=== PATIENT | male | born 1990 | race Caucasian/White ===

== ENCOUNTER 2019-08-13 10:41 | Emergency (ER) | payer OTHER ==
--- NOTE | 2019-08-13 11:09 | EDM.PDOC ---
ED HPI GENERAL MEDICAL PROBLEM - General Chief Complaint: Gastrointestinal Problem Stated Complaint: ABDOMINAL PAIN Time Seen by Provider: 08/13/19 11:04 Source of Information: Reports: Patient, RN Notes Reviewed History Limitations: Reports: No Limitations - History of Present Illness INITIAL COMMENTS - FREE TEXT/NARRATIVE: Patient is a 29-year-old male who presents to the ED for the evaluation of his mid abdominal pain. Patient notes that he is had this pain on and off for years , but he notes that the pain worsened this morning, he is experiencing some nausea/vomiting and diarrhea with this. Patient states that his whole mid belly feels as if there is some mild bloating, and a bandlike pressure around his belly. He states that sitting or laying down hurts, and then walking around seems to make it feel better. He notes that his stomach feels like it is on fire, and he did have couple episodes of diarrhea this morning as well as some vomiting after the pain developed. Patient notes he has been trying a probiotic the last 2 weeks, and it was helping until today. Patient denies any recent illness, fever/chills, cough/shortness of breath, has been told he has anxiety in the past, but does not take any medications but does however smoke some marijuana to try to relieve his anxiety. The patient notes some musculoskeletal surgery is otherwise he has no abdominal surgery so still retains his appendix and gallbladder. Patient states he is not a daily drinker , and drinks very rarely socially, he said he had 2 white claws last morning. Patient does not have a primary care provider, and is never seen a doctor for this abdomen pain. 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 Middle Abdomen Pain Score (Numeric/FACES): 10 - Related Data Allergies Allergy/AdvReac Type Severity Reaction Status Date / Time No Known Allergies Allergy Verified 08/13/19 11:04 Home Meds: Home Meds LORazepam [Ativan] 1 mg PO TID PRN #20 tab 08/13/19 [Rx] Metoclopramide HCl [Reglan] 10 mg PO QID PRN #20 tablet 08/13/19 [Rx] Past Medical History - Past Health History Medical/Surgical History: Denies Medical/Surgical History - Past Surgical History Musculoskeletal Surgical History: Reports: Shoulder Surgery (labrum surgery), Other (See Below) (pec reconstruction surgery) Social & Family History - Tobacco Use Smoking Status *Q: Never Smoker - Caffeine Use Caffeine Use: Reports: None - Alcohol Use Alcohol Use History: Yes Date/Time of Last Drink Comment: drinks very rarely, had 2 white claws last night Alcohol Use Frequency: Rarely - Recreational Drug Use Recreational Drug Use: Yes Drug Use in Last 12 Months: Yes Recreational Drug Type: Reports: Marijuana/Hashish Recreational Drug Use Frequency: Daily ED ROS GENERAL - Review of Systems Review Of Systems: See Below Constitutional: Denies: Fever, Chills, Malaise Respiratory: Denies: Shortness of Breath, Cough Cardiovascular: Denies: Chest Pain GI/Abdominal: Reports: Abdominal Pain (mid-upper abd pain), Diarrhea, Nausea, Vomiting. Denies: Constipation, Decreased Appetite : Denies: Dysuria, Flank Pain, Frequency, Urgency Psychiatric: Reports: Anxiety (pt is pacing room and is obviously anxious, somewhat diaphoretic) ED EXAM, GI/ABD - Physical Exam Exam: See Below Exam Limited By: No Limitations General Appearance: Alert, WD/WN, No Apparent Distress, Anxious (pacing room but does lay down for exam, seems calmer when he is being talked to/distracted) Eyes: Bilateral: Normal Appearance Ears: Normal External Exam Nose: Normal Inspection Throat/Mouth: Normal Inspection, Normal Lips, Normal Teeth, Normal Gums, Normal Oropharynx, Normal Voice, No Airway Compromise Head: Atraumatic, Normocephalic Neck: Normal Inspection Respiratory/Chest: No Respiratory Distress, Lungs Clear, Normal Breath Sounds, No Accessory Muscle Use, Chest Non-Tender Cardiovascular: Normal Peripheral Pulses, Regular Rate, Rhythm, No Murmur GI/Abdominal Exam: Normal Bowel Sounds, Soft, No Distention, No Mass, Tender ( LUQ and mid abdomen seems to be focal source of pain) Neurological: Alert, Oriented, Normal Cognition, No Motor/Sensory Deficits Psychiatric: Normal Affect, Normal Mood Skin Exam: Warm, Intact, Normal Color, No Rash, Diaphoretic (slightly) Course - Vital Signs Last Recorded V/S: Last Vital Signs Temp Pulse 99 08/13/19 10:58 Resp 18 08/13/19 10:58 BP Pulse Ox 99 08/13/19 10:58 - Orders/Labs/Meds Labs: Laboratory Tests 08/13/19 08/13/19 08/13/19 Range/Units 11:25 11:25 13:05 WBC 13.98 H (4.23-9.07) K/mm3 RBC 5.11 (4.63-6.08) M/mm3 Hgb 15.2 (13.7-17.5) gm/dl Hct 44.5 (40.1-51.0) % MCV 87.1 (79.0-92.2) fl MCH 29.7 (25.7-32.2) pg MCHC 34.2 (32.2-35.5) g/dl RDW Std Deviation 40.4 (35.1-43.9) fL Plt Count 335 (163-337) K/mm3 MPV 9.2 L (9.4-12.3) fl Neutrophils % (Manual) 75 H (40-60) % Band Neutrophils % 0 (0-10) % Lymphocytes % (Manual) 18 L (20-40) % Atypical Lymphs % 0 % Monocytes % (Manual) 7 (2-10) % Eosinophils % (Manual) 0 L (0.8-7.0) % Basophils % (Manual) 0 L (0.2-1.2) Platelet Estimate Adequate RBC Morph Comment Normal Sodium 140 (136-145) mEq/L Potassium 3.7 (3.5-5.1) mEq/L Chloride 104 (98-107) mEq/L Carbon Dioxide 25 (21-32) mEq/L Anion Gap 14.7 (5-15) BUN 13 (7-18) mg/dL Creatinine 1.1 (0.7-1.3) mg/dL Est Cr Clr Drug Dosing 123.84 mL/min Estimated GFR (MDRD) > 60 (>60) mL/min BUN/Creatinine Ratio 11.8 L (14-18) Glucose 102 (74-106) mg/dL Calcium 9.3 (8.5-10.1) mg/dL Total Bilirubin 0.9 (0.2-1.0) mg/dL GGT 13 L (15-85) U/L AST 22 (15-37) U/L ALT 24 (16-63) U/L Alkaline Phosphatase 71 (46-116) U/L Total Protein 7.6 (6.4-8.2) g/dl Albumin 4.1 (3.4-5.0) g/dl Globulin 3.5 gm/dL Albumin/Globulin Ratio 1.2 (1-2) Lipase 124 (73-393) U/L Urine Color Yellow (Yellow) Urine Appearance Clear (Clear) Urine pH 7.0 (5.0-8.0) Ur Specific [place] > or = 1.030 (1.005-1.030) Urine Protein Trace H (Negative) Urine Glucose (UA) Negative (Negative) Urine Ketones 1+ H (Negative) Urine Occult Blood Negative (Negative) Urine Nitrite Negative (Negative) Urine Bilirubin Negative (Negative) Urine Urobilinogen 0.2 (0.2-1.0) Ur Leukocyte Esterase Negative (Negative) Urine RBC 0-5 (0-5) /hpf Urine WBC 0-5 (0-5) /hpf Ur Epithelial Cells 0-5 (0-5) /hpf Urine Bacteria Moderate H (FEW) /hpf Urine Mucus Many H (FEW) /hpf Meds: Medications Discontinued Medications Generic Name Dose Route Start Last Admin Trade Name Freq PRN Reason Stop Dose Admin Diatrizoate Meglum/Diatrizoate Sod 90 ml 08/13/19 13:34 Gastrografin 37% PO 08/13/19 13:35 ONETIME ONE Hydromorphone HCl 1 mg 08/13/19 11:28 08/13/19 11:36 Dilaudid IVPUSH 08/13/19 11:29 1 mg ONETIME STA Administration Sodium Chloride 1,000 mls @ 999 mls/hr 08/13/19 11:30 08/13/19 11:36 Normal Saline IV 999 mls/hr ASDIRECTED SHONA Administration Iopamidol 100 ml 08/13/19 13:33 08/13/19 13:42 Isovue-300 (61%) IVPUSH 08/13/19 13:34 100 ml ONETIME ONE Administration Lorazepam 1 mg 08/13/19 12:06 08/13/19 12:21 Ativan IVPUSH 08/13/19 12:07 1 mg ONETIME ONE Administration Metoclopramide HCl 10 mg 08/13/19 12:14 08/13/19 12:21 Reglan IVPUSH 08/13/19 12:15 10 mg ONETIME ONE Administration Ondansetron HCl 4 mg 08/13/19 11:28 08/13/19 11:36 Zofran IVPUSH 08/13/19 11:29 4 mg ONETIME ONE Administration - Re-Assessments/Exams Free Text/Narrative Re-Assessment/Exam: 08/13/19 11:37 Patient presents to the ED for the evaluation of his abdominal pain. I do believe a portion of this is anxiety related, but will get some labs and abdomen / pelvis CT for further examination. 08/13/19 14:[address] have resulted, CBC demonstrates a mildly elevated white count, but 75% neutrophils and no bands, which could be stress reaction. CT demonstrates no acute abnormalities. I do highly believe that a lot of his symptoms are anxiety or stress related, as the nurse reports that the Ativan seemed to help the greatest with his anxiety. I will offer the patient a prescription for this, and have him follow-up with a regular provider for further evaluation if warranted. But again I do believe most of his symptoms are due to stress and anxiety in nature. Departure - Departure Time of Disposition: 14:46 Disposition: Home, Self-Care 01 Condition: Good Clinical Impression: Anxiety Abdominal pain Qualifiers: Abdominal location: generalized Qualified Code(s): R10.84 - Generalized abdominal pain Nausea & vomiting Qualifiers: Vomiting type: unspecified Vomiting Intractability: non-intractable Qualified Code(s): R11.2 - Nausea with vomiting, unspecified - Discharge Information *PRESCRIPTION DRUG MONITORING PROGRAM REVIEWED*: Yes *COPY OF PRESCRIPTION DRUG MONITORING REPORT IN PATIENT ROMAN: No Prescriptions: LORazepam [Ativan] 1 mg PO TID PRN #20 tab PRN Reason: Anxiety Metoclopramide HCl [Reglan] 10 mg PO QID PRN #20 tablet PRN Reason: Nausea Instructions: Abdominal Pain, Adult, [id number], Living With Anxiety Referrals: PCP,None [Primary Care Provider] - Forms: ED Department Discharge Additional Instructions: You were evaluated in the ED for your generalized abdomen pain with nausea/ vomiting. You did have some labs done today, and everything is essentially within normal limits. Your white blood cell count is a little bit elevated, but this is likely due to stress and not a bacterial infection, your urinalysis looked okay as well. Abdomen pelvis CT demonstrated no sign of any acute abnormalities that would require more urgent management at today's visit. You were given some IV fluids, IV pain medication, IV antianxiety medication, and IV antinausea medication. The nausea medications and the anti-anxiety medications seem to give you the best benefit. It is highly likely that most your symptoms can be due to anxiety, anxiety can cause a lot of GI distress in some patients. Please take the Ativan, 1 tablet 3 times a day as needed for anxiety type symptoms. You have also been given a prescription for an antinausea medication , please take 1 tablet 4 times a day as needed for further nausea/vomiting. Highly and strongly recommend that you follow-up in our clinic with a primary care provider of choice, please call [phone] to establish with a primary care provider of choice. You will need to establish with a primary care provider, to provide continuation of the antianxiety medications and for further evaluation. Regarding your allergies, or phlegm production in the back your throat, you may trial an [id number] allergy medication like Claritin or Zyrtec, to see if this does not clear up some of the suspected postnasal drip that might be causing the phlegm. Please return to the ER at any time if symptoms should change or worsen. Sepsis Event Note - Evaluation Sepsis Screening Result: No Definite Risk - Focused Exam Vital Signs: Vital Signs Pulse Resp Pulse Ox 08/13/19 10:58 99 18 99 Date Exam was Performed: 08/13/19 Time Exam was Performed: 19:49
[2019-08-13] MEDS ORDERED: HYDROmorphone 1 MG/ML Syringe IVPUSH STA (11:28)
[2019-08-13] MEDS ORDERED: Ondansetron 4 MG/2 ML SDV IVPUSH ONE (11:28)
[2019-08-13] MEDS ORDERED: Sodium Chloride 0.9% 1,000 ML IV SCH (11:30)
[2019-08-13] MEDS ORDERED: LORazepam 2 MG/ML SDV IVPUSH ONE (12:06)
[2019-08-13] MEDS ORDERED: Metoclopramide 10 MG/2 ML SDV IVPUSH ONE (12:14)
[2019-08-13] MEDS ORDERED: Iopamidol 612 MG/ML 100 ML Bottle IVPUSH ONE (13:33)
[2019-08-13] MEDS ORDERED: Diatrizoate Meglumine/Diatrizoate Sodium 37% 120 ML Bottle PO ONE (13:34)
--- NOTE | 2019-08-13 14:30 | CT ---
CT abdomen and pelvis Technique: Multiple axial sections were obtained from above the dome of the diaphragm inferiorly through the pubic symphysis. Intravenous contrast was utilized. Small amount of oral contrast seen mostly within the stomach as well as within several proximal small bowel loops. Delayed images were obtained through the bladder. Comparison: No prior abdominal imaging is available. Visualized lung bases show nothing acute. Liver contains no focal parenchymal abnormality. Gallbladder contains no calcified gallstones. Spleen appears within normal limits. Adrenal glands show no nodule. Kidneys show symmetric contrast enhancement without hydronephrosis or mass. Aorta shows no aneurysm. No retroperitoneal adenopathy or mesenteric abnormalities are seen. Pancreas appears normal. Aorta shows no aneurysm. No retroperitoneal adenopathy or mesenteric abnormalities are seen. No pelvic mass or adenopathy is noted. No free fluid or inflammatory change is appreciated. Small lymph nodes are seen within the mesentery believed to be within normal limits. Bone window settings were reviewed. No acute osseous finding is appreciated. Delayed images shows contrast within the distal ureters and within the bladder. Impression: 1. Nothing acute is appreciated on CT study of the abdomen and pelvis. Diagnostic code #1 This report was dictated in MDT
== END 2019-08-13 15:10 | disposition home or self-care (01) ==
LOC: JD.ED 10:41
DX: R10.84 Generalized abdominal pain (principal); R11.2 Nausea with vomiting, unspecified; F41.9 Anxiety disorder, unspecified; Z79.899 Other long term (current) drug therapy
CPT/HCPCS: 36415; 74177; 80053; 81001; 82977; 83690; 85007; 85027; 96361; 96374; 96375; 99284; J1170; J2060; J2405; J2765; J7030; Q9963; Q9967

== ENCOUNTER 2019-11-06 23:21 | Emergency (ER) | payer OTHER ==
--- NOTE | 2019-11-06 23:55 | EDM.PDOC ---
ED HPI GENERAL MEDICAL PROBLEM - General Chief Complaint: Abdominal Pain Stated Complaint: ABDOMINAL PAIN Time Seen by Provider: 11/06/19 23:52 Source of Information: Reports: Patient, RN Notes Reviewed - History of Present Illness INITIAL COMMENTS - FREE TEXT/NARRATIVE: 29 yr old male with onset of abd pain and vomiting after eating pizza a few hrs prior. States he has had trouble for yrs with episodic abd pain and vomiting but this has gotten worse over the past month or so. He is now vomiting about once a day, "spits up a lot of phlegm, sometimes blood tinged. Has upper mid abd pain this evening. No diarrhea. No fever or chills. Abdomen Pain Score (Numeric/FACES): 9 - Related Data Allergies Allergy/AdvReac Type Severity Reaction Status Date / Time No Known Allergies Allergy Verified 11/06/19 23:55 Home Meds: Home Meds . [No Known Home Meds] 11/07/19 [History] Past Medical History - Past Health History Medical/Surgical History: Denies Medical/Surgical History Gastrointestinal History: Reports: Other (See Below) Other Gastrointestinal History: chronic loose stools Neurological History: Reports: Concussion Psychiatric History: Reports: Anxiety - Past Surgical History Musculoskeletal Surgical History: Reports: Shoulder Surgery, Other (See Below) Other Musculoskeletal Surgeries/Procedures:: Torn labrum and pectoris muscle Social & Family History - Tobacco Use Smoking Status *Q: Current Every Day Smoker Years of Tobacco use: 8 Packs/Tins Daily: 0.3 - Caffeine Use Caffeine Use: Reports: None - Recreational Drug Use Recreational Drug Use: Yes Drug Use in Last 12 Months: Yes Recreational Drug Type: Reports: Marijuana/Hashish Recreational Drug Use Frequency: Daily ED ROS GENERAL - Review of Systems Review Of Systems: See Below Constitutional: Denies: Fever, Chills, Diaphoresis HEENT: Reports: No Symptoms Respiratory: Denies: Shortness of Breath, Pleuritic Chest Pain Cardiovascular: Denies: Chest Pain GI/Abdominal: Reports: Abdominal Pain, Nausea, Vomiting. Denies: Diarrhea, Hematochezia, Melena Skin: Reports: No Symptoms Neurological: Reports: No Symptoms ED EXAM, GI/ABD - Physical Exam Exam: See Below General Appearance: Alert, Anxious, Other (pacing, very anxious at time of my initial exam) Head: Atraumatic Neck: Supple Respiratory/Chest: No Respiratory Distress, Lungs Clear, Normal Breath Sounds Cardiovascular: Regular Rate, Rhythm GI/Abdominal Exam: Soft, Tender (upper mid abd and mid abd, lower abd nontender). No: Guarding, Rebound Extremities: Normal Inspection Neurological: Alert, Oriented, No Motor/Sensory Deficits Skin Exam: Warm, Dry, Normal Color Course - Vital Signs Last Recorded V/S: Last Vital Signs Temp 97.2 F 11/06/19 23:28 Pulse 64 11/06/19 23:28 Resp 17 11/06/19 23:28 BP Pulse Ox 99 11/06/19 23:28 - Orders/Labs/Meds Orders: Active Orders 24 hr Category Date Time Status Peripheral IV Care [RC] . DIRECTED Care 11/07/19 00:03 Active Abdomen 2V AP Flat Upright [CR] Stat Exams 11/07/19 00:47 Taken Ketorolac [Toradol] Med 11/07/19 00:15 Active 30 mg IVPUSH ONETIME Sodium Chloride 0.9% [Saline Flush] Med 11/07/19 00:03 Active 10 ml FLUSH ASDIRECTED PRN Peripheral IV Insertion Adult [OM.PC] Stat Oth 11/07/19 00:02 Ordered Medication Orders Ketorolac Tromethamine (Toradol) 30 mg IVPUSH ONETIME SHONA Last Admin: 11/07/19 00:14 Dose: 30 mg Documented by: DION Sodium Chloride (Saline Flush) 10 ml FLUSH ASDIRECTED PRN PRN Reason: Keep Vein Open Last Admin: 11/07/19 00:15 Dose: 10 ml Documented by: DION Labs: Laboratory Tests 11/07/19 11/07/19 11/07/19 Range/Units 00:04 00:04 00:04 WBC 12.90 H (4.23-9.07) K/mm3 RBC 4.90 (4.63-6.08) M/mm3 Hgb 14.6 (13.7-17.5) gm/dl Hct 42.7 (40.1-51.0) % MCV 87.1 (79.0-92.2) fl MCH 29.8 (25.7-32.2) pg MCHC 34.2 (32.2-35.5) g/dl RDW Std Deviation 39.8 (35.1-43.9) fL Plt Count 378 H (163-337) K/mm3 MPV 9.2 L (9.4-12.3) fl Neut % (Auto) 63.9 (34.0-67.9) % Lymph % (Auto) 23.6 (21.8-53.1) % Mathews % (Auto) 11.4 (5.3-12.2) % Eos % (Auto) 0.5 L (0.8-7.0) Baso % (Auto) 0.4 (0.1-1.2) % Neut # (Auto) 8.25 H (1.78-5.38) K/mm3 Lymph # (Auto) 3.05 (1.32-3.57) K/mm3 Mathews # (Auto) 1.47 H (0.30-0.82) K/mm3 Eos # (Auto) 0.06 (0.04-0.54) K/mm3 Baso # (Auto) 0.05 (0.01-0.08) K/mm3 Manual Slide Review Normal smear Sodium 136 (136-145) mEq/L Potassium 3.2 L (3.5-5.1) mEq/L Chloride 98 (98-107) mEq/L Carbon Dioxide 24 (21-32) mEq/L Anion Gap 17.2 H (5-15) BUN 18 (7-18) mg/dL Creatinine 1.4 H (0.7-1.3) mg/dL Est Cr Clr Drug Dosing 92.15 mL/min Estimated GFR (MDRD) > 60 (>60) mL/min BUN/Creatinine Ratio 12.9 L (14-18) Glucose 106 (74-106) mg/dL Calcium 9.2 (8.5-10.1) mg/dL Total Bilirubin 0.6 (0.2-1.0) mg/dL AST 34 (15-37) U/L ALT 32 (16-63) U/L Alkaline Phosphatase 72 (46-116) U/L C-Reactive Protein 0.2 (<1.0) mg/dL Total Protein 7.3 (6.4-8.2) g/dl Albumin 4.3 (3.4-5.0) g/dl Globulin 3.0 gm/dL Albumin/Globulin Ratio 1.4 (1-2) Lipase 60 L (73-393) U/L Meds: Medications Generic Name Dose Route Start Last Admin Trade Name Dariel PRN Reason Stop Dose Admin Ketorolac Tromethamine 30 mg 11/07/19 00:15 11/07/19 00:14 Toradol IVPUSH 30 mg ONETIME SHONA Administration Sodium Chloride 10 ml 11/07/19 00:03 11/07/19 00:15 Saline Flush FLUSH 10 ml ASDIRECTED PRN Administration Keep Vein Open Discontinued Medications Generic Name Dose Route Start Last Admin Trade Name Freq PRN Reason Stop Dose Admin Ondansetron HCl 4 mg 11/07/19 00:03 11/07/19 00:13 Zofran IVPUSH 11/07/19 00:04 4 mg ONETIME ONE Administration - Re-Assessments/Exams Free Text/Narrative Re-Assessment/Exam: 11/07/19 01:43 Have given zofran IV and torodol IV. He is resting comfortably, feeling much better at time of reexam. WBC mildly elevated. Labs including lipase otherwise nl, flat and upright abd nl. Reviewed record of about 1 month ago, he did have an abd CT at that time which is reported to have been nl. Discharge instr. as documented. Departure - Departure Time of Disposition: 01:45 Disposition: Home, Self-Care 01 Condition: Fair Clinical Impression: Vomiting Qualifiers: Vomiting type: unspecified Vomiting Intractability: non-intractable Nausea presence: with nausea Qualified Code(s): R11.2 - Nausea with vomiting, unspecified Abdominal pain Qualifiers: Abdominal location: epigastric Qualified Code(s): R10.13 - Epigastric pain - Discharge Information Instructions: Abdominal Pain, Adult, [id number], Vomiting, Adult Referrals: PCP,None [Primary Care Provider] - Forms: ED Department Discharge Additional Instructions: Clear liquids and bland diet as tolerated. Avoid milk and dairy products for now. It looks like you would benefit from endoscopy, looking at your stomach and esophogus with a scope. Call clinic in AM for appt. to see Dr Abbott, call [phone] for appt. Sepsis Event Note (ED) - Evaluation Sepsis Screening Result: No Definite Risk - Focused Exam Vital Signs: Vital Signs Temp Pulse Resp Pulse Ox 11/06/19 23:28 97.2 F 64 17 99 - My Orders Last 24 Hours: My Active Orders 11/07/19 00:02 Peripheral IV Insertion Adult [OM.PC] Stat 11/07/19 00:03 Peripheral IV Care [RC] . DIRECTED Sodium Chloride 0.9% [Saline Flush] 10 ml FLUSH ASDIRECTED PRN 11/07/19 00:15 Ketorolac [Toradol] 30 mg IVPUSH ONETIME 11/07/19 00:47 Abdomen 2V AP Flat Upright [CR] Stat - Assessment/Plan Last 24 Hours: My Active Orders 11/07/19 00:02 Peripheral IV Insertion Adult [OM.PC] Stat 11/07/19 00:03 Peripheral IV Care [RC] . DIRECTED Sodium Chloride 0.9% [Saline Flush] 10 ml FLUSH ASDIRECTED PRN 11/07/19 00:15 Ketorolac [Toradol] 30 mg IVPUSH ONETIME 11/07/19 00:47 Abdomen 2V AP Flat Upright [CR] Stat
[2019-11-07] MEDS ORDERED: Sodium Chloride 0.9% 10 ML Syringe FLUSH PRN (00:03)
[2019-11-07] MEDS ORDERED: Ondansetron 4 MG/2 ML SDV IVPUSH ONE (00:03)
[2019-11-07] MEDS ORDERED: Ketorolac 30 MG/ML SDV IVPUSH SCH (00:15)
--- NOTE | 2019-11-07 10:20 | CR ---
Abdomen: Supine and upright views of the abdomen were obtained. Comparison: No prior abdominal plain film study, previous CT abdomen and pelvis study of 08/13/19 is available. Calcifications are seen within the pelvis most likely representing phleboliths. Bowel gas pattern appears normal. Bony structures are within normal limits. No soft tissue abnormality is seen. In no free air is seen. Impression: 1. Nothing acute is appreciated on 2 view abdominal x-ray. Diagnostic code #1 This report was dictated in MDT
== END 2019-11-07 01:42 | disposition home or self-care (01) ==
LOC: JD.ED 23:21
DX: R10.13 Epigastric pain (principal); R11.2 Nausea with vomiting, unspecified; F17.210 Nicotine dependence, cigarettes, uncomplicated
CPT/HCPCS: 36415; 74019; 80053; 83690; 85025; 86140; 96374; 96375; 99284; J1885; J2405

== ENCOUNTER 2019-11-14 07:00 | Day surgery (SDC) | payer OTHER ==
[~2019-11-14 07:00] MED LIST: Lactated Ringers 1,000 ML IV SCH; Lidocaine 1%/Sod Bicarbonate in NS 8.4% 1 ML Syringe IDERM PRN; Sodium Chloride 0.9% 10 ML Syringe FLUSH PRN
--- NOTE | 2019-11-14 07:13 | PCM.PREANE ---
Preanesthetic Assessment - Anesthesia/Transfusion/Family Hx Anesthesia History: Prior Anesthesia Without Reaction Family History of Anesthesia Reaction: No Transfusion History: No Prior Transfusion(s) Intubation History: Unknown - Review of Systems General: No Symptoms Pulmonary: No Symptoms ( marijuana daily/chewing tobacco-1-2 cans per week/Etoh: rarely) Cardiovascular: Palpitations (During episodes of chief complaint.), Lightheadedness (with epigastric pain and coughing spells in which is his chief complaint today.) Gastrointestinal: No Symptoms (GERD), Abdominal Pain, Constipation, Difficulty Swallowing (increased phlegm production hard to swallow), Vomiting Neurological: No Symptoms, Tingling (during chief complaint episodes) Other: Reports: Depression, Anxiety - Physical Assessment NPO Status Date: 11/13/19 NPO Status Time: 19:30 Vital Signs: HR:76 Sat:96% B/P:129/73 Temp:97.5 Resp:16 Height: 1.93 m Weight: 124 kg ASA Class: 2 Mental Status: Alert & Oriented x3 Airway Class: Mallampati = 2 Dentition: Reports: Normal Dentition, Caries Thyro-Mental Finger Breadths: 3 Mouth Opening Finger Breadths: 3 ROM/Head Extension: Full Lungs: Clear to Auscultation, Normal Respiratory Effort Cardiovascular: Regular Rate, Regular Rhythm, No Murmurs, Bradycardia - Lab Values: All labs reviewed and noted and within acceptable ranges to proceed with scheduled procedure. - Allergies Allergies/Adverse Reactions: Allergies Allergy/AdvReac Type Severity Reaction Status Date / Time No Known Allergies Allergy Verified 11/13/19 11:26 - Anesthesia Plan Pre-Op Medication Ordered: None - Acknowledgements Anesthesia Type Planned: MAC Pt an Appropriate Candidate for the Planned Anesthesia: Yes Alternatives and Risks of Anesthesia Discussed w Pt/Guardian: Yes Pt/Guardian Understands and Agrees with Anesthesia Plan: Yes PreAnesthesia Questionnaire - Past Health History Medical/Surgical History: Denies Medical/Surgical History HEENT History: Reports: None Cardiovascular History: Reports: None Respiratory History: Reports: None Gastrointestinal History: Reports: Other (See Below) Other Gastrointestinal History: chronic loose stools Genitourinary History: Reports: None PRINCIPAL ARCHAEOLOGIST History: Reports: None Musculoskeletal History: Reports: None Neurological History: Reports: Concussion Psychiatric History: Reports: Anxiety Hematologic History: Reports: None Immunologic History: Reports: None Oncologic (Cancer) History: Reports: None Dermatologic History: Reports: None - Infectious Disease History Infectious Disease History: Reports: None - Past Surgical History Head Surgeries/Procedures: Reports: None HEENT Surgical History: Reports: None Cardiovascular Surgical History: Reports: None Respiratory Surgical History: Reports: None GI Surgical History: Reports: None Female Surgical History: Reports: None Male Surgical History: Reports: None Neurological Surgical History: Reports: None Musculoskeletal Surgical History: Reports: Shoulder Surgery, Other (See Below) Other Musculoskeletal Surgeries/Procedures:: Torn labrum and pectoralis muscle with surgical repair Oncologic Surgical History: Reports: None Dermatological Surgical History: Reports: None - SUBSTANCE USE Smoking Status *Q: Current Every Day Smoker Tobacco Use Within Last Twelve Months: Snuff/Dip Recreational Drug Use History: Yes Recreational Drug Type: Reports: Marijuana/Hashish - HOME MEDS Home Medications: Home Meds Digestive 8/L.acidoph/Pectin [Digestive Enzymes Tablet] 2 tab PO BID 11/13/19 [History] - CURRENT (IN HOUSE) MEDS Current Meds: Current Medications Lactated Ringer's (Ringers, Lactated) 1,000 mls @ 125 mls/hr IV ASDIRECTED SHONA Stop: 11/14/19 23:00 Lidocaine/Sodium Bicarbonate (Buffered Lidocaine 1% In Ns 8.4%) 0.25 ml IDERM ONETIME PRN PRN Reason: Prior to IV Start Stop: 11/14/19 18:00 Sodium Chloride (Saline Flush) 10 ml FLUSH ASDIRECTED PRN PRN Reason: Keep Vein Open Stop: 11/14/19 18:00
[2019-11-14] MEDS ORDERED: Lidocaine 1% 6 ML ONE (07:17)
[2019-11-14] MEDS ORDERED: Propofol 200 MG/20 ML SDV ONE (07:17)
[2019-11-14] MEDS ORDERED: Lactated Ringers 1,000 ML ONE (07:17)
[2019-11-14] MEDS ORDERED: fentaNYL 100 MCG/2 ML SDV ONE (07:17)
[2019-11-14] MEDS ORDERED: Atropine 0.4 MG/ML SDV ONE (07:58)
--- NOTE | 2019-11-14 09:26 | PCM48HPAN ---
Post Anesthesia Note - EVALUATION WITHIN 48HRS OF ANESTHETIC Vital Signs in Normal Range: Yes Patient Participated in Evaluation: Yes Respiratory Function Stable: Yes Airway Patent: Yes Cardiovascular Function Stable: Yes Hydration Status Stable: Yes Pain Control Satisfactory: Yes Nausea and Vomiting Control Satisfactory: Yes Mental Status Recovered: Yes Vital Signs: Last Vital Signs Temp 36.4 C 11/14/19 07:05 Pulse 76 11/14/19 07:05 Resp 16 11/14/19 07:05 BP 129/73 11/14/19 07:05 Pulse Ox 96 11/14/19 07:05
--- NOTE | 2019-11-14 19:20 | PCM.PRNOTE ---
- Free Text/Narrative Note: Date: 11/14/2019 Procedure: diagnostic EGD Indication: chronic abdominal pain, belching, phlegm Endoscopist: Dany Abbott MD Findings: no gross abnormality appreciated Detailed Report: The patient was taken to the endoscopy suite and placed in left lateral decubitus position. Time out was performed and monitored anesthesia care initiated. A bite block was placed and the endoscope was inserted into the mouth. The scope was advanced easily to the second portion of the duodenum. Duodenal mucosa was without gross abnormality. A sample biopsy from the bulb was obtained with cold forceps. The pylorus, antrum, body and fundus appeared normal, without sign of peptic ulcer disease or hiatal hernia. Samples were taken from the antrum and body. The Z line was somewhat indistinct. A few samples of distal esophageal mucosa were obtained. There was no mucosal erosion or erythema appreciated. The remainder of the esophagus was without obvious pathology. Air was suctioned from the stomach and the scope withdrawn. The patient tolerated the procedure well.
== END 2019-11-14 09:10 | disposition home or self-care (01) ==
LOC: JD.SDS 07:00
PROVIDERS: ATTEND Surgery
DX: I78.1 Nevus, non-neoplastic (principal); G89.29 Other chronic pain; R10.13 Epigastric pain; F41.9 Anxiety disorder, unspecified; F17.220 Nicotine dependence, chewing tobacco, uncomplicated; F32.9 Major depressive disorder, single episode, unspecified
CPT/HCPCS: 43239; J0461; J2001; J2704; J3010; J7120